=== PATIENT | male | born 1980 | race Caucasian/White ===

== ENCOUNTER → 2020-06-27 | Outpatient (CLI) | payer OTHER ==
[~2020-06-27] MED LIST: AUGMENTIN 875-1 EACH PO; EXPECTORANT200 MG PO; FLONASE 0.05% N16 GM; PHENERGAN 12.12.5 M1 PO; PREDNISONE 20 M20 MG PO; PREDNISONE 50 M50 MG PO
== END ==
LOC: RAD 16:30
DX: R05 Cough (principal); R91.8 Other nonspecific abnormal finding of lung field
CPT/HCPCS: 71046

== ENCOUNTER → 2020-06-28 | Outpatient (CLI) | payer OTHER ==
[2020-06-28 09:09] LABS: HEMOGLOBIN 15.1 gm/dl (14.0-17.5); RED BLOOD COUNT 4.88 M/UL (4.20-5.50); WHITE BLOOD COUNT 4.9 K/UL (4.5-11.0)
[2020-06-28 09:32] LABS: BUN/CREATININE RATIO 15 (0-10)
== END ==
LOC: LAB 06:54
PROVIDERS: Nurse Practitioner Family
DX: E78.5 Hyperlipidemia, unspecified (principal); E55.9 Vitamin D deficiency, unspecified
CPT/HCPCS: 36415; 80053; 80061; 82607; 84439; 84443; 85025

== ENCOUNTER → 2021-01-04 | Outpatient (CLI) | payer OTHER | LOC: MRI 15:59 | DX: M47.22 Other spondylosis with radiculopathy, cervical region (principal); M25.78 Osteophyte, vertebrae; M48.02 Spinal stenosis, cervical region; Z98.1 Arthrodesis status; M50.122 Cervical disc disorder at C5-C6 level with radiculopathy | CPT/HCPCS: 72040; 72156; A9577 ==